=== PATIENT | male | born 1975 | race Caucasian/White ===

== ENCOUNTER 2021-03-06 18:42 | Emergency (ER) | payer MEDICAID, OTHER ==
[~2021-03-06] VITALS: Ht 162.6 cm; Wt 71.0 kg
[~2021-03-06 18:42] MED LIST: ALBU18HF2 IH; ATAZ100C; EMTR1TAB; PRED20TA PO; [UNRECOGNIZED DRUG - CODE] PO
[2021-03-06 19:05] VITALS: BP 131/76
--- NOTE | 2021-03-06 19:10 | NUR ---
PT INFORMED OF RISKS AND BENEFITS TO ANTIVIRAL MED FOR COVID, PT DECIDED TO NOT HAVE MEDICATION ADMINISTED, PT EDUCATED ON HOW TO CARE FOR SELF AT HOME AND TO RETURN TO ER NEEDED
--- NOTE | 2021-03-06 19:12 | NUR ---
PT SEEN AND DC'D BY PROVIDER
== END 2021-03-06 19:12 | disposition home or self-care (01) ==
LOC: ER 18:42
DX: U07.1 COVID-19 (principal); F12.90 Cannabis use, unspecified, uncomplicated; Z88.1 Allergy status to other antibiotic agents; Z88.5 Allergy status to narcotic agent; Z79.899 Other long term (current) drug therapy
CPT/HCPCS: 99281